=== PATIENT | female | born 2000 | race Caucasian/White ===

== ENCOUNTER → 2020-10-21 12:27 | Outpatient (CLI) | payer OTHER, MEDICAID, SELFPAY ==
--- NOTE | 2020-10-21 12:28 | DI.US.S_ITS ---
PROCEDURE: US OB LIMITED INDICATIONS: INTIAL DATING AND VIABILITY OUTSIDE/PRIOR DATING DATA: Last menstrual period (LMP): 06/29/2020. LMP-based estimated date of delivery (MODESTO): 04/05/2021. First dating scan (date and location): 10/21/2020. Estimated date of delivery (MODESTO) from first dating scan: 04/04/2021. TECHNIQUE: Real-time scanning was performed of the fetus, with image documentation and biometric measurements. Biophysical profile was also obtained. Endovaginal scanning: Not performed COMPARISON: None. FINDINGS: General: A single living intrauterine gestation is present. Presentation: too early. Placenta: Placental position is anterior , without previa. Amniotic fluid index: 13.4 cm, normal range is 5-24 cm. Largest pocket 4.0 cm. heart rate: 157 beats per minute. Maternal cervical canal: 3.1 cm long. Normal lower limit is 2.5 cm. biometrics: Biparietal diameter: 16 weeks 5 days Head circumference: 16 weeks 4 days Abdominal circumference: 16 weeks 4 days Femur length: 50 weeks 6 days Estimated gestational age from clinically datin weeks 2 days. Composite gestational age from present scan: 16 weeks 3 days Estimated weight and percentile: n.a. Measurement variability for biometric dating: +/- 7 days from 14 weeks to 15 weeks 6 days gestation, +/- 10 days from 16 weeks to 21 weeks 6 days gestation, +/- 2 weeks from 22 weeks to 27 weeks 6 days gestation, +/- 3 weeks for 28 weeks gestation or later. weight reference: 4500 g or EFW >90/95% is considered macrosomia or large for gestational age. EFW <10% is small for gestational age. EFW 5% or less is considered intra-uterine growth restriction. IMPRESSION: 1. A single living intrauterine gestation with an estimated gestational age of 16 weeks 3 days corresponding to ultrasound MODESTO 04/04/2021. Ultrasound dating concordant with clinical dating. Dictated by: Lili Merlos M.D. on 10/21/2020 at 17:43 Approved by: Lili Merlos M.D. on 10/21/2020 at 22:41
== END ==
PROVIDERS: Family Provider Pediatrics; PCP Pediatrics; Referring Provider Family Medicine; Visit Provider Family Medicine
DX: Z36.87 Encounter for antenatal screening for uncertain dates (principal); Z3A.16 16 weeks gestation of pregnancy
CPT/HCPCS: 76815

== ENCOUNTER → 2020-11-03 12:50 | Outpatient (CLI) | payer OTHER, MEDICAID, SELFPAY ==
[2020-11-03 13:50] LABS: Add Manual Diff / Slide Review NO; Basophils Absolute Auto 0 /uL (0-100); Basophils Percent Auto 0.4 % (0-2); Eosinophils Absolute Auto 100 /uL (0-450); Eosinophils Percent Auto 1.2 % (2-4); Hematocrit 40.3 % (36-46); Hemoglobin 13.7 g/dL (12.0-16.0); Lymphocytes Absolute Auto 1700 /uL (1100-4500); Lymphocytes Percent Auto 21.1 % (25-40); Mean Corpuscular Hemoglobin 31.6 PG (26-34); Mean Corpuscular Volume 92.8 fL (80-100); Monocytes Absolute Auto 400 /uL (0-900); Monocytes Percent Auto 4.8 % (3-14); Neutrophils Absolute Auto 5900 /uL (1500-7000); Neutrophils Percent Auto 72.5 % (50-75); Platelet Count 221 X10^3/uL (150-400); Red Blood Cell Count 4.34 X10^6/uL (4.0-5.2); Red Cell Distribution Width 13.9 % (11.6-14.8); White Blood Cell Count 8.1 X10^3/uL (4.5-11.0)
[2020-11-03 13:55] LABS: Appearance Urine UA SL CLOUDY; Bilirubin Urine UA NEGATIVE (NEGATIVE); Color Urine UA YELLOW; Glucose Urine UA NEGATIVE (Negative); Ketones Urine UA NEGATIVE (NEGATIVE); Leukocyte Esterase Urine UA NEGATIVE (NEGATIVE); Nitrite Urine UA NEGATIVE (Negative); Occult Blood Urine UA NEGATIVE (Negative); Protein Urine UA NEGATIVE (Negative); Specific Gravity Urine UA 1.015 (1.000-1.035); Urobilinogen Urine UA 0.2 E.U./dL (0.2)
[2020-11-03 20:10] LABS: HIV 1 & 2 Ab/Ag 4th Gen Combo NEGATIVE (NEGATIVE); Hep C Virus Ab w/Reflex Quant NEGATIVE s/c (NEGATIVE); Hepatitis B Surface Antigen NEGATIVE s/c (NEGATIVE); Rubella Antibody IgG 8.9 IU/mL (>15)
[2020-11-04 05:37] LABS: RPR Screen Non Reactive (Non Reactive)
[2020-11-04 13:16] LABS: Varicella IgG Antibody 169 index (Immune >165)
[2020-11-06 19:06] LABS: AFP, Serum 32.2 ng/mL (.); Calc Gestational Age Ultrasound (.); Estriol, Free 2.66 ng/mL (.); Inhibin A, Dimeric 108.46 pg/mL (.); Inhibin A, MoM 0.65 (.); Maternal Ethnicity Caucasian (.); Maternal Weight 173 lbs (.); Number of Fetuses No (.); OSBR Risk 1 IN 10000 (.); Results Report (.); Test Results *Screen Negative* (.); hCG, MoM 1.48 (.); hCG, Serum 32510 mIU/mL (.)
== END ==
PROVIDERS: Family Provider Pediatrics; Referring Provider Family Medicine; Visit Provider Family Medicine
DX: Z34.02 Encounter for supervision of normal first pregnancy, second trimester (principal); Z3A.18 18 weeks gestation of pregnancy
CPT/HCPCS: 36415; 80055; 81003; 82105; 82677; 84702; 86336; 86787; 86803; 86850; 86900; 86901; 87077; 87086; 87389

== ENCOUNTER → 2020-11-16 14:28 | Outpatient (CLI) | payer OTHER, MEDICAID, SELFPAY ==
--- NOTE | 2020-11-16 14:31 | DI.US.S_ITS ---
PROCEDURE: US OB >= 14 WEEKS FETUS INDICATIONS: ANATOMY OUTSIDE/PRIOR DATING DATA: Last menstrual period (LMP): June 29, 2020. LMP-based estimated date of delivery (MODESTO): April 05, 2021 . First dating scan (date and location): October 21, 2020 . Estimated date of delivery (MODESTO) from first dating scan: April 04, 2021 . TECHNIQUE: Real-time scanning was performed of the fetus, with image documentation and biometric measurements. Endovaginal scanning: Not performed COMPARISON: None. FINDINGS: General: A single living intrauterine gestation is present. Presentation: Transverse Placenta: Placental position is low anterior, without previa. There is a low lying placenta with the placental edge measuring approximately 1.7 cm from the internal cervical os. Amniotic fluid index: 13.6 cm, normal range is 5-24 cm. heart rate: 158 beats per minute. Maternal cervical canal: 4.6 cm long. Normal lower limit is 2.5 cm. biometrics: Biparietal diameter: 4.9 cm, correlating with 20 weeks and 5 days Head circumference: 18.3 cm, correlating with 20 weeks and 5 days Abdominal circumference: 15.8 cm, correlating with 20 weeks and 6 days Femur length: 3.0 cm, correlating with 19 weeks and 1 day Estimated gestational age from initial scan: 20 weeks and 1 day Composite gestational age from present scan: 20 weeks and 3 days Estimated weight and percentile: 339 [address] the fetus within the 49th percentile based off gestational age. Measurement variability for biometric dating: +/- 7 days from 14 weeks to 15 weeks 6 days gestation, +/- 10 days from 16 weeks to 21 weeks 6 days gestation, +/- 2 weeks from 22 weeks to 27 weeks 6 days gestation, +/- 3 weeks for 28 weeks gestation or later. weight reference: 4500 g or EFW >90/95% is considered macrosomia or large for gestational age. EFW <10% is small for gestational age. EFW 5% or less is considered intra-uterine growth restriction. Anatomic survey: Neuro: Ventricles are non-dilated at less than 10 mm. Cisterna magna is normal at 3-11 mm. Cerebellum is normal in size and morphology. Nuchal skin fold: Normal at less than 6 mm between 14-21 weeks gestational age. Face: Nose and lips are normal. facial profile not well imaged secondary to lie. Spine: No evidence for spina bifida. Heart: 4-chambered heart is present, with normal ventricular outflow tracts. Nonspecific 2.9 mm left ventricular echogenic focus seen. Diaphragm: Diaphragm is intact. Stomach: Left-sided stomach is present. Kidneys: No hydronephrosis. Normal is less than 5 mm in 2nd trimester, less than 7 mm in 3rd trimester. Cord: 3-vessel cord has orthotopic insertion. Bladder: Normal in size. Extremities: All 4 extremities identified. IMPRESSION: 1. Single living intrauterine gestation with estimated sonographic gestational age of approximately 20 weeks and 3 days. Estimated dated delivery is approximately April 04, 2021. 2. facial profile not well visualized. Follow-up recommended. 3. Nonspecific 3 mm left ventricular echogenic focus which is a nonspecific finding and can be seen in to 20% of normal fetuses. This may represent the normal papillary muscle or cordae tendineae. Recommend correlation with maternal risk factors and further evaluation as clinically appropriate. Attention can be made on subsequent imaging. Otherwise, unremarkable anatomic screening survey. 4. Low lying placenta with the edge of the placenta measuring approximately 1.7 cm from the internal cervical os. Follow-up can also be accomplished on subsequent imaging. Dictated by: Efe Eddy M.D. on 11/16/2020 at 17:54 Approved by: Efe Eddy M.D. on 11/16/2020 at 18:04
== END ==
PROVIDERS: Family Provider Pediatrics; PCP Family Medicine; Referring Provider Family Medicine; Visit Provider Family Medicine
DX: Z34.92 Encounter for supervision of normal pregnancy, unspecified, second trimester (principal); Z3A.20 20 weeks gestation of pregnancy
CPT/HCPCS: 76811

== ENCOUNTER → 2020-12-17 10:43 | Outpatient (CLI) | payer OTHER, MEDICAID, SELFPAY ==
--- NOTE | 2020-12-17 10:44 | DI.US.S_ITS ---
PROCEDURE: US OB FOLLOW UP INDICATIONS: RE-EVALUATE PROFILE, EIF, PLACENTA OUTSIDE/PRIOR DATING DATA: Last menstrual period (LMP): 06/29/20 . LMP-based estimated date of delivery (MODESTO): 04/05/21 . First dating scan (date and location): 10/21/20 . Estimated date of delivery (MODESTO) from first dating scan: 04/04/21 . TECHNIQUE: Real-time scanning was performed of the fetus, with image documentation and biometric measurements. Endovaginal scanning: Not performed COMPARISON: [facility], OB LIMITED, 10/21/2020, 11:40. [facility], OB >= 14 WEEKS FETUS, 11/16/2020, 14:38. FINDINGS: General: A single living intrauterine gestation is present. Presentation: Vertex. Placenta: Placental position is anterior , without previa. Amniotic fluid index: 17.5 cm, normal range is 5-24 cm. Largest pocket is 6.1 cm. heart rate: 152 beats per minute. Maternal cervical canal: 3.2 cm long. Normal lower limit is 2.5 cm. Other: Echogenic focus within the cardiac left ventricle is redemonstrated. facial profile is within normal limits. IMPRESSION: 1. Single living intrauterine . 2. Echogenic intracardiac focus is redemonstrated in the left ventricle. 3. facial profile appears within normal limits. 4. Anterior placenta is no longer low lying. Dictated by: Davina Rivera M.D. on 12/17/2020 at 13:20 Approved by: Davina Rivera M.D. on 12/17/2020 at 13:25
== END ==
PROVIDERS: Family Provider Pediatrics; PCP Family Medicine; Referring Provider Family Medicine; Visit Provider Family Medicine
DX: Z36.2 Encounter for other antenatal screening follow-up (principal)
CPT/HCPCS: 76816

== ENCOUNTER → 2021-01-12 15:01 | Outpatient (CLI) | payer OTHER, MEDICAID, SELFPAY | PROVIDERS: Family Provider Pediatrics; PCP Family Medicine; Referring Provider Family Medicine; Visit Provider Family Medicine | DX: Z34.90 Encounter for supervision of normal pregnancy, unspecified, unspecified trimester (principal) | CPT/HCPCS: 36415; 86850 ==

== ENCOUNTER → 2021-01-13 16:39 | Outpatient (CLI) | payer OTHER, MEDICAID, SELFPAY ==
[2021-01-13 18:18] LABS: Add Manual Diff / Slide Review NO; Basophils Absolute Auto 0 /uL (0-100); Basophils Percent Auto 0.4 % (0-2); Eosinophils Absolute Auto 100 /uL (0-450); Eosinophils Percent Auto 0.9 % (2-4); Hematocrit 36.5 % (36-46); Hemoglobin 12.4 g/dL (12.0-16.0); Lymphocytes Absolute Auto 1100 /uL (1100-4500); Lymphocytes Percent Auto 16.4 % (25-40); Mean Corpuscular HGB Conc 33.9 % (30-36); Mean Corpuscular Hemoglobin 31.2 PG (26-34); Monocytes Absolute Auto 500 /uL (0-900); Monocytes Percent Auto 7.3 % (3-14); Neutrophils Absolute Auto 5200 /uL (1500-7000); Platelet Count 204 X10^3/uL (150-400); Red Blood Cell Count 3.97 X10^6/uL (4.0-5.2); Red Cell Distribution Width 12.7 % (11.6-14.8); White Blood Cell Count 6.9 X10^3/uL (4.5-11.0)
[2021-01-13 18:20] LABS: GTT (PREG) 1 Hour PP 50gm Dose 96 mg/dL (76-139)
== END ==
PROVIDERS: Family Provider Pediatrics; PCP Family Medicine; Referring Provider Family Medicine; Visit Provider Family Medicine
DX: Z34.90 Encounter for supervision of normal pregnancy, unspecified, unspecified trimester (principal)
CPT/HCPCS: 36415; 82950; 85025

== ENCOUNTER → 2021-03-09 12:10 | Outpatient (CLI) | payer OTHER, MEDICAID, SELFPAY ==
[2021-03-10 09:00] LABS: Strep Grp B PCR NEG for Grp B Strep
== END ==
PROVIDERS: Family Provider Pediatrics; PCP Family Medicine; Visit Provider Family Medicine
DX: Z3A.36 36 weeks gestation of pregnancy (principal)
CPT/HCPCS: 87653

== ENCOUNTER 2021-04-05 20:01 | Outpatient (CLI) | payer OTHER, MEDICAID, SELFPAY ==
--- NOTE | 2021-04-05 20:57 | PM.OBTRLD ---
Visit Information Visit Information Date of evaluation: 04/05/21 Primary OB Provider: Amy Holloway Reason for Evaluation: Yes rule out labor Comments/Additional reasons for admission: 21yo at 40w0d here for labor check. She is not feeling any contractions, but wanted her cervix checked since it is her due date. No LOF or vaginal bleeding. She is feeling her baby move regularly. [facility] Medical History (Updated 04/06/21 @ 10:07 by Amy Holloway MD) Anxiety Concussion Cyst of left breast (~2019) Depression History of being hospitalized Hx of migraines Loss of teeth due to extraction Skull fracture Trauma Surgical History (Updated 11/01/20 @ 11:29 by Joellen Cleveland, RN) No history of previous surgery Family History (Updated 11/01/20 @ 10:50 by Joellen Cleveland, RN) Father Alcohol addiction Depression Anxiety PTSD (post-traumatic stress disorder) Mother Tendonitis Arthritis Grandfather Alcohol addiction Family estrangement Grandmother Arthritis Diabetes mellitus Grandfather Family estrangement Alcohol addiction Grandmother Family estrangement Alcohol addiction Brother Mental health problem Sister Mental health problem Family/Other Leukemia Cancer Family/Other Asthma Social History marital status: unmarried,living together number of children: 1 household members: significant other, family (Aunt and Uncle and their Baby), children (Baby) and other lives independently: No caregiver/support person: No pets and animals: Yes (Dogs ) education level: high school (No planning on finishing HS ) 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 Use of Marijuana to manage Depression and Anxiety ) Tobacco: How many years used: 4 Smokeless tobacco user: dissolvable tobacco quit status: quit date established (With Diagnosis) second hand exposure: Yes (FOB and Friends they hang out with smoke : cigarettes and Vape) alcohol intake: former (pre- : social use on occasion ) substance use type: does not use and marijuana (H/O regular use of Marijuana for Anxiety and Depression : aware and stopped using with . Encouraged mental health support. ) Evaluation Evaluation Baseline heart rate: 120 Variability: Moderate (11-25) monitor accelerations: Present Monitor Decelerations: Absent Contraction Frequency (minutes): 4 Category of Tracing: Reactive Cervical dilation (cm): 0 station: -4 Diagnosis, Plan/Disposition Final Diagnosis (1) 40 weeks gestation of : Status: Acute Plan/Disposition Plan: 21yo at 40w0d here for labor check. Not feeling contractions. Cervix not reachable on exam by nursing. NST reassuring. Stable for d/c home. OB Disposition: home
== END 2021-04-05 20:45 | disposition home or self-care (01) ==
LOC: OB 04-11 14:39
PROVIDERS: Family Provider Pediatrics; PCP Family Medicine; Referring Provider Family Medicine; Visit Provider Family Medicine
DX: O48.0 Post-term pregnancy (principal); Z3A.40 40 weeks gestation of pregnancy
CPT/HCPCS: 59025; G0378; G0379

== ENCOUNTER 2021-04-07 00:46 | Outpatient (CLI) | payer OTHER, MEDICAID, SELFPAY | END 2021-04-07 01:55 | disposition home or self-care (01) | LOC: OB 04-11 14:43 | PROVIDERS: Family Provider Pediatrics; PCP Family Medicine; Referring Provider Obstetrics & Gynecology; Visit Provider Obstetrics & Gynecology | DX: O47.1 False labor at or after 37 completed weeks of gestation (principal); O48.0 Post-term pregnancy; Z3A.40 40 weeks gestation of pregnancy | CPT/HCPCS: 59025; G0378; G0379 ==

== ENCOUNTER 2021-04-07 23:12 | Observation (INO) | payer OTHER, MEDICAID, SELFPAY ==
[2021-04-08 02:30] LABS: Appearance Urine UA CLEAR; Bilirubin Urine UA NEGATIVE (NEGATIVE); Color Urine UA YELLOW; Glucose Urine UA NEGATIVE (Negative); Ketones Urine UA 3+ (NEGATIVE); Leukocyte Esterase Urine UA NEGATIVE (NEGATIVE); Nitrite Urine UA NEGATIVE (Negative); Occult Blood Urine UA 1+ (Negative); Protein Urine UA 2+ (Negative); Urobilinogen Urine UA 0.2 E.U./dL (0.2)
[2021-04-08 02:32] LABS: Bacteria Urine Occasional (0-1); Mucus Urine 1+ (Negative); RBC Urine 5-10/HPF (0-5/HPF); Squamous Epithelial Cell Urine 1-5 /HPF (0-5/HPF); WBC Urine None Seen (0-5/HPF)
[2021-04-08 02:33] LABS: Culture Indicated Urine Cult Not Indicated
== END 2021-04-08 01:45 | disposition home or self-care (01) ==
LOC: LABOR 23:14
PROVIDERS: Admitting Provider Obstetrics & Gynecology; Family Provider Pediatrics; PCP Family Medicine; Referring Provider Obstetrics & Gynecology; Visit Provider Obstetrics & Gynecology
DX: O47.1 False labor at or after 37 completed weeks of gestation (principal); O48.0 Post-term pregnancy; Z3A.40 40 weeks gestation of pregnancy
CPT/HCPCS: 59025; 81001; 96372; G0378; G0379

== ENCOUNTER 2021-04-08 06:25 | Inpatient (IN) | payer OTHER, MEDICAID, SELFPAY ==
[2021-04-08] MEDS: LACTATED RINGERS 1,000 ML 100 ML IV ×2 (07:00→08:10)
[2021-04-08 07:42] LABS: Add Manual Diff / Slide Review NO; Basophils Absolute Auto 100 /uL (0-100); Basophils Percent Auto 0.7 % (0-2); Eosinophils Absolute Auto 0 /uL (0-450); Eosinophils Percent Auto 0.1 % (2-4); Hematocrit 36.7 % (36-46); Hemoglobin 11.9 g/dL (12.0-16.0); Lymphocytes Absolute Auto 1100 /uL (1100-4500); Lymphocytes Percent Auto 9.6 % (25-40); Mean Corpuscular HGB Conc 32.4 % (30-36); Mean Corpuscular Hemoglobin 25.4 PG (26-34); Mean Corpuscular Volume 78.6 fL (80-100); Monocytes Absolute Auto 500 /uL (0-900); Monocytes Percent Auto 4.1 % (3-14); Neutrophils Absolute Auto 10100 /uL (1500-7000); Neutrophils Percent Auto 85.5 % (50-75); Platelet Count 249 X10^3/uL (150-400); Red Blood Cell Count 4.67 X10^6/uL (4.0-5.2); Red Cell Distribution Width 15.5 % (11.6-14.8); White Blood Cell Count 11.8 X10^3/uL (4.5-11.0)
--- NOTE | 2021-04-08 07:42 | P.HPOB_ITS ---
OB HPI Date/Time Date of admission: 04/08/21 Date Patient Seen: 04/08/21 Time Patient Seen: 07:43 History of Present Condition Chief complaint: OBS MODESTO Calculator Estimated Delivery Date Method Current WG Current Estimate 04/05/21 Manual 40w 3d Final MODESTO Other Estimates 04/05/21 LMP (Certain) 40w 3d 04/04/21 Ultrasound #1 40w 4d Estimated Gestational Age (weeks): 40w3d : 1 Para: 0 Narrative: 21yo at 40w3d here with regular painful contractions. Pt was in L&D earlier in the evening without significant cervical change despite painful cont ractions. She received Morphine and Phenergan and discharged home. She then returned with increasingly frequent contractions getting more painful. She denies any vaginal bleeding. She did have LOF that was clear at 5:30am. She is feeling her baby move regularly. Her was complicated by EIF seen on anatomy scan, with negative genetic screening since then. care: good care, initiated at week # (18) and pounds weight gain (23) Dating criteria OB: LMP confirmed by 2nd trimester US Ultrasounds: abnormal US findings (EIF) Obstetrical complications: other (EIF on anatomy scan with negative cfDNA) Medical complications OB: none Preadmission Labs Last OB Lab Results: Blood Type O Negative 11/03/20 12:59 11/03/20 Antibody Screen Negative 01/12/21 15:21 01/12/21 Hematocrit 36.7 % (36-46) 04/08/21 06:35 04/08/21 Hemoglobin 11.9 g/dL (12.0-16.0) L 04/08/21 06:35 04/08/21 Hepatitis B Surface Antigen Negative s/c (NEGATIVE) 11/03/20 12:59 11/03/20 Hepatitis C Antibody Negative s/c (NEGATIVE) 11/03/20 12:59 11/03/20 Rubella Antibody 8.9 IU/mL (>15) L 11/03/20 12:59 11/03/20 Varicella-Zoster IgG Antibody 169 index (Immune >165) 11/03/20 12:59 11/03/20 Glucose 1 Hour 96 mg/dL (76-139) 01/13/21 16:57 01/13/21 Group B Streptococcus (PCR) Neg for grp b strep 03/09/21 12:10 03/09/21 -: Urine: negative Genetic Screens: Quad screen: Normal and Cell-free DNA: Normal External Labs -: Urine: negative Evaluation Evaluation Baseline heart rate: 140 Variability: Moderate (11-25) monitor accelerations: Present Monitor Decelerations: Absent Contraction Frequency (minutes): 3 Status: Category l Dilation (cm): 10 Effacement (%): 100 station: 0 PFSH Medical History (Updated 04/06/21 @ 10:07 by Amy Holloway MD) Anxiety Concussion Cyst of left breast (~2018) Depression History of being hospitalized Hx of migraines Loss of teeth due to extraction Skull fracture Trauma Surgical History (Updated 11/01/20 @ 11:29 by Joellen Cleveland RN) No history of previous surgery Family History (Updated 11/01/20 @ 10:50 by Joellen Cleveland RN) Father Alcohol addiction Depression Anxiety PTSD (post-traumatic stress disorder) Mother Tendonitis Arthritis Grandfather Alcohol addiction Family estrangement Grandmother Arthritis Diabetes mellitus Grandfather Family estrangement Alcohol addiction Grandmother Family estrangement Alcohol addiction Brother Mental health problem Sister Mental health problem Family/Other Leukemia Cancer Family/Other Asthma Social History marital status: unmarried,living together number of children: 1 household members: significant other, family (Aunt and Uncle and their Baby), children (Baby) and other lives independently: No caregiver/support person: No pets and animals: Yes (Dogs ) education level: high school (No planning on finishing HS ) 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 Use of Marijuana to manage Depression and Anxiety ) Tobacco: How many years used: 4 Smokeless tobacco user: dissolvable tobacco quit status: quit date established (With Diagnosis) second hand exposure: Yes (FOB and Friends they hang out with smoke : cigarettes and Vape) alcohol intake: former (pre- : social use on occasion ) substance use type: does not use and marijuana (H/O regular use of Marijuana for Anxiety and Depression : aware and stopped using with . Encouraged mental health support. ) Meds Home Medications and Allergies Home Medications Medication Instructions Recorded Confirmed Type doxylamine succinate 25 mg tablet 25 mg PO BEDTIME PRN 11/01/20 11/01/20 History (Unisom (doxylamine)) prenat.vits,tico,[id number] 1 tab PO DAILY 11/01/20 11/01/20 History Allergies Allergy/AdvReac Type Severity Reaction Status Date / Time amoxicillin [From AUGMENTIN] Allergy Intermediate HIVES Unverified 11/01/20 10:07 clavulanic acid Allergy Intermediate Hives Verified 11/01/20 10:07 [CLAVULANIC ACID] Objective Labs Result Diagrams: 04/08/21 06:35 Assessment and Plan Assessment and Plan Assessment and Plan narrative: Pt is a 21yo at 40w3d here in active labor. No complications with pregn sintia. Rh negative, GBS negative. - Expectant management, anticipate - FHT reassuring - GBS negative, no prophylaxis indicated - Collect cord blood for Rh status after delivery - Epidural in place for pain control
--- NOTE | 2021-04-08 07:49 | PM.AN.REGBLK ---
Regional Block Pre-procedure Procedure: Continuous Lumbar Epidural for L&D Attending OB provider: Amy Holloway PMH/ROS narrative: active labor Hx: No personal or family history of anesthesia problems. PSH/Anesthesia history narrative: none Exam narrative: RRR CTAB ASA Class: II Medications: Current Medications Generic Name Dose Route Start Last Admin Trade Name Freq PRN Reason Stop Dose Admin Calcium Carbonate 1,000 mg 04/08/21 07:30 Calcium Carbonate 500 Mg Tab PO Q2HR PRN Dyspepsia Carboprost Tromethamine 250 mcg 04/08/21 07:30 Carboprost 250 Mcg/Ml Ampul IM Q90M PRN Bleeding Fentanyl 50 mcg 04/08/21 07:30 Fentanyl 100 Mcg/2 Ml Inj IV Q1H PRN Pain, Moderate (4-6) Oxytocin/Lactated Ringer's 30 unit in 500 mls @ 200 mls/hr 04/08/21 07:30 Oxytocin Premix IV CONT PRN Bleeding Protocol Oxytocin/Lactated Ringer's 30 unit in 500 mls @ 3 mls/hr 04/08/21 07:30 Oxytocin Premix IV TITRATE NADEEM Protocol 3 MILLIUNIT/MIN Tranexamic Acid 1,000 mg/ 100 mls @ 200 mls/hr 04/08/21 07:30 Sodium Chloride IV NOW PRN Bleeding Lactated Ringer's 1,000 mls @ 100 mls/hr 04/08/21 07:30 Lactated Ringers IV CONT NADEEM Methylergonovine Maleate 0.2 mg 04/08/21 07:30 Methylergonovine 0.2 Mg Tablet PO Q6HR PRN Heavy Bleeding Methylergonovine Maleate 0.2 mg 04/08/21 07:30 Methylergonovine 0.2 Mg/Ml Vial IM NOW PRN Bleeding Misoprostol 1,000 mcg 04/08/21 07:30 Misoprostol 200 Mcg Tablet [place] NOW PRN Bleeding Misoprostol 800 mcg 04/08/21 07:30 Misoprostol 200 Mcg Tablet [place] NOW PRN Bleeding Misoprostol 400 mcg 04/08/21 07:30 Misoprostol 200 Mcg Tablet SL NOW PRN Bleeding Naloxone HCl 0.2 mg 04/08/21 07:30 Naloxone 0.4 Mg/Ml Vial IV Q2MIN PRN Opiate Reversal Ondansetron HCl 4 mg 04/08/21 07:30 Ondansetron 4 Mg/2 Ml Inj IV Q4HR PRN Nausea And Vomiting Oxytocin 10 unit 04/08/21 07:30 Oxytocin 10 Unit/Ml Vial IM NOW PRN Bleeding Allergies: Allergies Allergy/AdvReac Type Severity Reaction Status Date / Time amoxicillin [From AUGMENTIN] Allergy Intermediate HIVES Unverified 11/01/20 10:07 clavulanic acid Allergy Intermediate Hives Verified 11/01/20 10:07 [CLAVULANIC ACID] Procedure Insertion date: 04/08/21 Insertion time: 07:25 Prep/Local: betadine x3 (chloroprep) and 1% lidocaine Interspace: L3-4 Patient position: sitting Needle: 18 gauge Blackford Analysistead (with 27G pencil point needle-through needle for IT dose) Loss of resistance with: saline (with air bubble) LUDY at (cm): 7 Catheter placed at SKIN (cm): 12 Catheter in SPACE (cm): 5 Insertion: Yes CSF, No Blood, No Paresthesia with insertion, No Paresthesia with injection and No Test dose reaction Initial Medications TEST DOSE time: 07:25 TEST DOSE: 1.5% lidocaine with epinephrine 1:200k (mL): 5 (3mL initial test dose, 2mL as part of first bolus) BOLUS DOSE time: 07:27 BOLUS DOSE (mL): 2 BOLUS DOSE med: other (10mcg fentanyl intrathecally, 90mcg fentanyl via epidural catheter) Infusion INFUSION: 0.0625% bupivacaine and with fentanyl 2 mcg/mL Initial rate (mL/hr): 12 (with bolus of 5mL Q15min lockout) Post-procedure Anesthesia time START: 07:12 Anesthesia time END: 10:18 Post-procedure Anesthesia Assessment: No Anesthesia complications
[2021-04-08 07:56] LABS: COVID19 -Nasal RAPID Negative (Negative)
[2021-04-08] MEDS: FENT 2MCG/ML BUPIV 0.125% EPI 200 MCG/100 ML PLAST..BAG 12 MCG EPIDURAL (08:09)
[2021-04-08 08:11] VITALS: BP 115/64
--- NOTE | 2021-04-08 11:03 | P.PCNOB_ITS ---
Labor & Delivery Delivery date: 04/08/21 Intrapartal Events: None Cervical ripening method: none Induction method: none Delivery monitor: external FHT Route of delivery: Episiotomy description: None L&D Laceration Description: Perineal - 2nd Degree Delivery repair: vicryl Estimated blood loss (mL): 100 Anesthesia Type: Epidural Complications: None Narrative: PROCEDURE: at 40w3d presented in active labor and was admitted to Labor and Delivery. She had SROM with clear fluid. The patient progressed through the 1st stage over 17 hours. Pain was controlled with an epidural. The patient progressed through the 2nd stage over 2.5 hours and delivered a viable female infant with APGARs 7/8 at 10:18 via without complications. The baby was in direct OP presentation at delivery. The cord was clamped and cut after it stopped pulsating. The perineum and vagina were inspected with 2nd degree perineal laceration repaired with 2-O Vicryl. PREPROCEDURE DIAGNOSIS: Intrauterine at 40w3d GBS negative RH negative POSTPROCEDURE DIAGNOSIS: Intrauterine at 40w3d, delivered Same as preprocedure Spontaneous vaginal delivery Direct OP presentation [place] 1: gender: Female Presentation: vertex Position: Right Occiput Posterior (direct OP presentation) Placenta delivery description: Spontaneous Cord Vessel Description: 3 Vessels score (5 min): 7 score (10 min): 8 weight: 8 lb 11.967 oz Plan for aftercare: Routine care
[2021-04-08 13:11] VITALS: TEMP 37.1
[2021-04-08] MEDS: IBUPROFEN 600 MG TABLET PO ×2 (13:11→21:03)
[2021-04-08 13:12] VITALS: TEMP 37.1
[2021-04-08] MEDS: ACETAMINOPHEN 325 MG TABLET 650 MG PO ×2 (13:12→21:03)
[2021-04-09] MEDS: IBUPROFEN 600 MG TABLET PO (08:48)
[2021-04-09] MEDS: ACETAMINOPHEN 325 MG TABLET 650 MG PO (08:48)
[2021-04-09] MEDS: PRENATAL VIT,CALC/IRON/FOLIC 1 TABLET 1 TAB PO (08:48)
[2021-04-09] MEDS: DOCUSATE 100 MG CAPSULE PO (08:48)
--- NOTE | 2021-04-09 10:24 | PM.OBDS.1 ---
Discharge Providers Provider Date of admission: 04/08/21 06:25 Discharge Date: 04/09/21 Primary care physician: Amy Holloway MD Consults: 04/09/21 11:02 Consult to Belt Conveyor Drier Routine Comment: Discharge provider: Amy Holloway MD Summary Hospital Course Date Patient Seen: 04/09/21 Time Patient Seen: 10:24 Diagnoses: Intrauterine at 40w3d GBS negative RH negative Spontaneous vaginal delivery Hospital Course: The patient presented in active labor. She received an epidural for pain control. She progressed to complete and had spontaneous vaginal delivery of a viable baby girl on 04/08/2021. A 2nd degree perineal laceration was then repaired. There were no complications. , there were no complications. At the time of discharge she was voiding, ambulating, and passing flatus without difficulty. She received a RhoGAM injection for Rh negative status with Rh positive baby. Her pain was adequately controlled. She is breast-feeding with good last. Her lochia was decreasing appropriately. She will follow up in clinic in 6 weeks for check. Peripartum Data Delivery Method: Natural Vaginal Laceration Description: Perineal - 2nd Degree Episiotomy description: None Procedures: Spontaneous vaginal delivery complications: none [place] 1: Gender: Female Disposition of : home Discharge Diagnosis (1) Spontaneous vaginal delivery: Status: Acute Status at Discharge Cognitive/behavioral status at discharge: oriented Functional status at discharge: independent ambulation Overall status at discharge: patient is progressing back to baseline Time Spent with Patient Time attestation: Total time spent providing and/or coordinating discharge services: Objective Labs Result Diagrams: 04/08/21 06:35 Exam Narrative Exam Narrative: Gen: NAD, sitting comfortably in bed, appears well CV: RRR, no murmurs Resp: clear to auscultation bilaterally Abd: soft, appropriately tender, fundus firm and below the umbilicus, nondistended Ext: no edema Discharge Plan Discharge Plan Patient Disposition: Home Discharge orders & Medications Prescriptions: New acetaminophen 325 mg Tablet 650 mg PO Q6HR PRN (Reason: Pain, Mild (1-3)) Qty: 30 0RF docusate sodium 100 mg Capsule 100 mg PO DAILY Qty: 30 0RF ibuprofen 600 mg Tablet 600 mg PO Q6HR PRN (Reason: Pain, Mild (1-3)) Qty: 30 0RF Continued prenat.vits,tico,[id number] Tablet 1 tab PO DAILY 0RF Discontinued Unisom (doxylamine) 25 mg tablet 25 mg PO BEDTIME PRN (Reason: Stomach Upset) 0RF Follow up/Referrals: Amy Holloway MD [Primary Care Provider] - 6 Weeks Diet/Activity/Treatments Diet: Feed on demand Skin/Wound/Dressing Care Report to your healthcare provider any signs of infection, such as:: chills, fever, increased pain and unusual drainage Visit Report/Discharge Packet Instructions: DI for Labor and Delivery, Vaginal Visit Report Forms: Patient Portal/API, Stroke Signs & Symptoms Discharge Data Primary Care Provider: Amy Holloway
[2021-04-09 10:29] VITALS: BP 121/75; PULSE 60; RESP 16; TEMP 36.6
[2021-04-09] MEDS: MEASLES,MUMPS,RUBELLA VACC/PF 0.5 ML VIAL SUBCUT (10:57)
[2021-04-09] MEDS: RHO(D) IMMUNE GLOBULIN 1,500 UNIT SYRINGE 1500 UNIT IM (10:57)
== END 2021-04-09 11:50 | disposition home or self-care (01) | DRG 560 ==
PROVIDERS: Admitting Provider Obstetrics & Gynecology; Family Provider Pediatrics; PCP Family Medicine; Referring Provider Obstetrics & Gynecology; Visit Provider Obstetrics & Gynecology
DX: O70.1 Second degree perineal laceration during delivery (principal); Z3A.40 40 weeks gestation of pregnancy; Z37.0 Single live birth; O47.1 False labor at or after 37 completed weeks of gestation; O48.0 Post-term pregnancy
CPT/HCPCS: 01967; 36415; 59025; 59050; 59409; 81001; 85025; 85461; 86850; 86900; 86901; 87635; 96372; C9803; G0378; G0379; J2790

== ENCOUNTER → 2021-12-28 10:27 | Outpatient (CLI) | payer OTHER, MEDICAID, SELFPAY ==
--- NOTE | 2021-12-28 10:28 | DI.US.S_ITS ---
PROCEDURE: US OB <= 14 WEEKS FETUS INDICATIONS: DATING OUTSIDE/PRIOR DATING DATA: Last menstrual period (LMP): Not available. LMP-based estimated date of delivery (MODESTO): Not available. First dating scan (date and location): 12/28/2021. Estimated date of delivery (MODESTO) from first dating scan: 07/20/2022. TECHNIQUE: Real-time scanning was performed of the fetus and maternal pelvic organs, with image documentation. Endovaginal scanning was also performed to better visualize the fetus and maternal ovaries. COMPARISON: None. FINDINGS: There is a single living IUP. Embryo: Measuring 4.0 cm corresponding to 10 weeks 6 days in gestational age. Prominent gestational sac measuring 7.5 x 4.6 x 5.6 cm. There is nonfusion of chorionic and amniotic membranes with complex fluid and debris debris, suggesting blood product. It measures measuring 5.5 x 5.0 x 3.0 cm. The yolk sac measuring 6.1 mm. Heart rate: 180 BP and. Maternal organs: Left ovary is obscured by overlying bowel gas. Right ovary is grossly normal. IMPRESSION: 1. A single living intrauterine gestation with an estimated gestational age of 10 weeks 6 days corresponding to ultrasound MODESTO 07/20/2022. 2. There is complex fluid with debris between amniotic and chorionic membranes measuring 5.5 x 5.0 x 3.0 cm, compatible with hemorrhagic products. Recommend close clinical and imaging follow-up as clinically indicated. We strive to produce accurate, complete, and clear reports of imaging services. To assist us in improving patient care, this report was composed using standard report templates and voice recognition software. Therefore, it may contain abnormal punctuation, insertions and/or omissions. Occasional wrong-word or sound-alike substitutions may occur. Though we review the report and make efforts to correct it, we do recommend that the report be read carefully in proper context to recognize any text inaccuracies. Dictated by: Lili Merlos M.D. on 12/28/2021 at 16:26 Approved by: Lili Merlos M.D. on 12/29/2021 at 12:31
== END ==
PROVIDERS: Family Provider Pediatrics; PCP Family Medicine; Referring Provider Family Medicine; Visit Provider Family Medicine
DX: Z36.87 Encounter for antenatal screening for uncertain dates (principal); Z3A.10 10 weeks gestation of pregnancy
CPT/HCPCS: 76801; 76817

== ENCOUNTER → 2022-01-04 16:26 | Outpatient (CLI) | payer OTHER, MEDICAID, SELFPAY ==
[2022-01-04 21:20] LABS: Appearance Urine UA CLEAR; Bilirubin Urine UA NEGATIVE (NEGATIVE); Color Urine UA YELLOW; Glucose Urine UA NEGATIVE (Negative); Ketones Urine UA NEGATIVE (NEGATIVE); Leukocyte Esterase Urine UA TRACE (NEGATIVE); Nitrite Urine UA NEGATIVE (Negative); Occult Blood Urine UA NEGATIVE (Negative); Protein Urine UA NEGATIVE (Negative); Urobilinogen Urine UA 0.2 E.U./dL (0.2)
[2022-01-04 21:21] LABS: pH Urine UA 7.5 (4.5-8.0)
[2022-01-04 21:36] LABS: Bacteria Urine Few (2-10); RBC Urine None Seen (0-5/HPF); Squamous Epithelial Cell Urine 1-5 /HPF (0-5/HPF); WBC Urine 1-5/HPF (0-5/HPF)
== END ==
PROVIDERS: Family Provider Pediatrics; PCP Family Medicine; Visit Provider Family Medicine
DX: Z34.80 Encounter for supervision of other normal pregnancy, unspecified trimester (principal)
CPT/HCPCS: 81003; 81015; 87086

== ENCOUNTER → 2022-01-04 16:50 | Outpatient (CLI) | payer OTHER, MEDICAID, SELFPAY ==
[2022-01-04 18:08] LABS: Add Manual Diff / Slide Review NO; Basophils Absolute Auto 0 /uL (0-100); Basophils Percent Auto 0.5 % (0-2); Eosinophils Absolute Auto 100 /uL (0-450); Eosinophils Percent Auto 1.6 % (2-4); Hematocrit 39.9 % (36-46); Hemoglobin 14.1 g/dL (12.0-16.0); Lymphocytes Absolute Auto 1700 /uL (1100-4500); Lymphocytes Percent Auto 21.6 % (25-40); Mean Corpuscular HGB Conc 35.2 % (30-36); Mean Corpuscular Hemoglobin 31.6 PG (26-34); Mean Corpuscular Volume 89.6 fL (80-100); Monocytes Absolute Auto 400 /uL (0-900); Monocytes Percent Auto 4.5 % (3-14); Neutrophils Absolute Auto 5700 /uL (1500-7000); Neutrophils Percent Auto 71.8 % (50-75); Platelet Count 233 X10^3/uL (150-400); Red Blood Cell Count 4.46 X10^6/uL (4.0-5.2); Red Cell Distribution Width 13.8 % (11.6-14.8); White Blood Cell Count 7.9 X10^3/uL (4.5-11.0)
[2022-01-04 18:30] LABS: HCG Quantitative /Beta subunit 86211 mIU/mL
[2022-01-05 16:16] LABS: Hepatitis B Surface Antigen NEGATIVE s/c (NEGATIVE); Rubella Antibody IgG 56.7 IU/mL (>15)
[2022-01-05 16:31] LABS: HIV 1 & 2 Ab/Ag 4th Gen Combo NEGATIVE (NEGATIVE); Hep C Virus Ab w/Reflex Quant NEGATIVE s/c (NEGATIVE)
[2022-01-06 07:15] LABS: RPR Screen Non Reactive (Non Reactive)
[2022-01-06 12:37] LABS: Varicella IgG Antibody 157 index (Immune >165)
== END ==
PROVIDERS: Family Provider Pediatrics; PCP Family Medicine; Referring Provider Family Medicine; Visit Provider Family Medicine
DX: Z34.80 Encounter for supervision of other normal pregnancy, unspecified trimester (principal)
CPT/HCPCS: 36415; 80055; 81003; 81015; 84702; 86787; 86803; 86850; 86900; 86901; 87086; 87389

== ENCOUNTER → 2022-01-10 10:37 | Outpatient (CLI) | payer OTHER, MEDICAID, SELFPAY ==
--- NOTE | 2022-01-10 10:38 | DI.US.S_ITS ---
PROCEDURE: US OB LIMITED INDICATIONS: FOLLOW-UP HEMORRHAGE OUTSIDE/PRIOR DATING DATA: Last menstrual period (LMP): uncertain. First dating scan (date and location): 12/28/2021. Estimated date of delivery (MODESTO) from first dating scan: 07/20/2022. TECHNIQUE: Real-time scanning was performed of the fetus, with image documentation. Endovaginal scanning: Not performed COMPARISON: [facility], OB LIMITED, 10/21/2020, 11:40. [facility], OB <= 14 WEEKS FETUS, 12/28/2021, 10:52. FINDINGS: A single living intrauterine gestation is present. Presentation: Variable. Placenta: Placental position is anterior. heart rate: 163 beats per minute. Estimated gestational age from initial scan: 12 weeks 5 days. Interval decrease in size of previously demonstrated perigestational hemorrhage, current approximate dimensions 1.3 x 5.3 x 4.8 centimeters, previously 5.5 x 5.0 x 3.0 centimeters. IMPRESSION: 1. Single living intrauterine . 2. Decrease in size of the previously demonstrated perigestational hemorrhage/collection. Dictated by: Waylon Meredith M.D. on 01/10/2022 at 14:17 Approved by: Waylon Meredith M.D. on 01/10/2022 at 14:23
== END ==
PROVIDERS: Family Provider Pediatrics; PCP Family Medicine; Referring Provider Family Medicine; Visit Provider Family Medicine
DX: O46.8X1 Other antepartum hemorrhage, first trimester (principal); Z3A.12 12 weeks gestation of pregnancy
CPT/HCPCS: 76815

== ENCOUNTER → 2022-01-25 15:22 | Outpatient (CLI) | payer OTHER, MEDICAID, SELFPAY ==
--- NOTE | 2022-01-25 15:24 | DI.US.S_ITS ---
PROCEDURE: US OB FOLLOW UP INDICATIONS: perigestational hemmorage f/u OUTSIDE/PRIOR DATING DATA: Last menstrual period (LMP): Not available. LMP-based estimated date of delivery (MODESTO): Not available. First dating scan (date and location): 12/28/2021. Estimated date of delivery (MODESTO) from first dating scan: 07/20/2022. The calculations are made using the working MODESTO of 07/20/2022. TECHNIQUE: Real-time scanning was performed of the fetus, with image documentation and biometric measurements. Endovaginal scanning: Not performed COMPARISON: [facility], OB LIMITED, 01/10/2022, 10:44. [facility] OB <= 14 WEEKS FETUS, 12/28/2021, 10:52. [facility] OB FOLLOW UP, 12/17/2020, 10:53. FINDINGS: General: A single living intrauterine gestation is present. Presentation: Breech. Placenta: Placental position is anterior , without previa. Amniotic fluid index: Too early. heart rate: 168 beats per minute. Maternal cervical canal: Not well seen biometrics: Not performed. Based on the initial ultrasound, the estimated gestational age is 14 weeks 6 days. Other: Perigestational bleed is no longer visualized. IMPRESSION: 1. A single living intrauterine gestation is redemonstrated with the estimated gestational age 14 weeks 6 days based on the initial dating ultrasound 2. Resolution of perigestational bleed. We strive to produce accurate, complete, and clear reports of imaging services. To assist us in improving patient care, this report was composed using standard report templates and voice recognition software. Therefore, it may contain abnormal punctuation, insertions and/or omissions. Occasional wrong-word or sound-alike substitutions may occur. Though we review the report and make efforts to correct it, we do recommend that the report be read carefully in proper context to recognize any text inaccuracies. Dictated by: Lili Merlos M.D. on 01/25/2022 at 17:58 Approved by: Lili Merlos M.D. on 01/25/2022 at 18:04
== END ==
PROVIDERS: Family Provider Pediatrics; PCP Family Medicine; Referring Provider Family Medicine; Visit Provider Family Medicine
DX: Z36.2 Encounter for other antenatal screening follow-up (principal); Z3A.14 14 weeks gestation of pregnancy
CPT/HCPCS: 76816

== ENCOUNTER → 2022-02-04 09:44 | Outpatient (CLI) | payer OTHER, MEDICAID, SELFPAY ==
[2022-02-08 20:50] LABS: Calc Gestational Age EDD (.); Estriol, Free 1.26 ng/mL (.); Inhibin A, Dimeric 82.29 pg/mL (.); Inhibin A, MoM 0.51 (.); Maternal Ethnicity Caucasian (.); Maternal Weight 146 lbs (.); Number of Fetuses No (.); OSBR Risk 1 IN 10000 (.); Results Report (.); Test Results *Screen Negative* (.); hCG, MoM 0.61 (.); hCG, Serum 25727 mIU/mL (.)
== END ==
PROVIDERS: Family Provider Pediatrics; PCP Family Medicine; Referring Provider Family Medicine; Visit Provider Family Medicine
DX: Z13.79 Encounter for other screening for genetic and chromosomal anomalies (principal); Z3A.16 16 weeks gestation of pregnancy
CPT/HCPCS: 36415; 82105; 82677; 84702; 86336

== ENCOUNTER → 2022-03-01 07:35 | Outpatient (CLI) | payer OTHER, MEDICAID, SELFPAY ==
--- NOTE | 2022-03-01 07:37 | DI.US.S_ITS ---
PROCEDURE: US OB >= 14 WEEKS FETUS INDICATIONS: ANATOMY OUTSIDE/PRIOR DATING DATA: Last menstrual period (LMP): Unknown. First dating scan (date and location): 12/28/2021. Estimated date of delivery (MODESTO) from first dating scan: 07/20/2022. TECHNIQUE: Real-time scanning was performed of the fetus, with image documentation and biometric measurements. Endovaginal scanning: Not performed COMPARISON: [facility], OB FOLLOW UP, 01/25/2022, 15:37. FINDINGS: General: A single living intrauterine gestation is present. Presentation: Breech. Placenta: Placental position is anterior , without previa. Amniotic fluid index: 13.8 cm, normal range is 5-24 cm. Single deepest vertical pocket is 5.0 cm. heart rate: 153 beats per minute. Maternal cervical canal: 2.9 cm long. Normal lower limit is 2.5 cm. biometrics: Biparietal diameter: 4.5 cm, 19 weeks 5 days Head circumference: 16.9 cm, 19 weeks 4 days Abdominal circumference: 15.4 cm, 20 weeks 4 days Femur length: 3.0 cm, 19 weeks 2 days estimated gestational age: 19 weeks 6 days Composite gestational age from present scan: 19 weeks 6 days Estimated weight and percentile: 320 g, 48th percentile Anatomic survey: Neuro: Ventricles are non-dilated at less than 10 mm. Cisterna magna is normal at 3-11 mm. Cerebellum is normal in size and morphology. Nuchal skin fold: Normal at less than 6 mm between 14-21 weeks gestational age. Face: Nose and lips, facial profile are normal. Spine: Cervical spine unremarkable. Thoracic, lumbar, sacral spine not well visualized. Heart: 4-chambered heart is present, with normal ventricular outflow tracts. Diaphragm: Diaphragm is intact. Stomach: Left-sided stomach is present. Kidneys: No hydronephrosis. Normal is less than 5 mm in 2nd trimester, less than 7 mm in 3rd trimester. Cord: Cord insertion is unremarkable. 3 vessel cord not well seen. Bladder: Normal in size. Extremities: All 4 extremities identified. IMPRESSION: 1. Single living intrauterine . 2. Thoracic, lumbar, and sacral spine not well visualized due to lie. Three vessel umbilical cord also not well visualized. Follow-up/repeat evaluation can be obtained as indicated. 3. Otherwise, the visualized anatomy is within normal limits. We strive to produce accurate, complete, and clear reports of imaging services. To assist us in improving patient care, this report was composed using standard report templates and voice recognition software. Therefore, it may contain abnormal punctuation, insertions and/or omissions. Occasional wrong-word or sound-alike substitutions may occur. Though we review the report and make efforts to correct it, we do recommend that the report be read carefully in proper context to recognize any text inaccuracies. Dictated by: Waylon Meredith M.D. on 03/01/2022 at 11:38 Approved by: Waylon Meredith M.D. on 03/01/2022 at 11:51
== END ==
PROVIDERS: Family Provider Pediatrics; PCP Family Medicine; Referring Provider Family Medicine; Visit Provider Family Medicine
DX: Z34.92 Encounter for supervision of normal pregnancy, unspecified, second trimester (principal); Z3A.19 19 weeks gestation of pregnancy
CPT/HCPCS: 76811

== ENCOUNTER → 2022-03-07 11:25 | Outpatient (CLI) | payer OTHER, MEDICAID, SELFPAY ==
[2022-03-07 14:05] LABS: COVID-19 CEPHEID 4-PLEX PCR Negative (Negative); Influenza A - CEPHEID Flu A POSITIVE (NEGATIVE); Influenza B - CEPHEID Flu B NEGATIVE (NEGATIVE)
== END ==
PROVIDERS: Family Provider Pediatrics; PCP Family Medicine; Visit Provider Family Medicine
DX: H93.8X3 Other specified disorders of ear, bilateral (principal); R05.9 Cough, unspecified; R09.81 Nasal congestion; R51.9 Headache, unspecified; R53.83 Other fatigue
CPT/HCPCS: 0240U

== ENCOUNTER → 2022-04-04 15:41 | Outpatient (CLI) | payer OTHER, MEDICAID, SELFPAY ==
--- NOTE | 2022-04-04 15:43 | DI.US.S_ITS ---
PROCEDURE: US OB FOLLOW UP INDICATIONS: RE-EVALUATE SPINE, 3V OUTSIDE/PRIOR DATING DATA: Last menstrual period (LMP): Unknown LMP-based estimated date of delivery (MODESTO): Unknown First dating scan (date and location): 12/28/2021 Estimated date of delivery (MODESTO) from first dating scan: 07/20/2022 The calculations are made using the study generated MODESTO of 07/20/2022. TECHNIQUE: Real-time scanning was performed of the fetus, with image documentation. Endovaginal scanning: Not indicated COMPARISON: [facility], , OB FOLLOW UP, 01/25/2022, 15:37 FINDINGS: A single living intrauterine gestation is present. Presentation: Breech Placenta: Placental position is anterior, without previa. Amniotic fluid index: 14.2 cm, normal range is 5-24 cm. Single deepest vertical pocket is 5.4 cm. heart rate: 147 beats per minute. Maternal cervical canal: 3.5 cm long. Normal lower limit is 2.5 cm. Estimated gestational age from initial scan: 24 weeks, 5 days. spine is well seen on the current study and is within normal limits. 3 vessel umbilical cord is also seen and is within normal limits. IMPRESSION: 1. Single live intrauterine gestation with fetus in breech presentation. heart rate is 147 beats per minute. Normal amount of amniotic fluid. 2. spine and three-vessel cord are visualized and are within normal limits. Dictated by: Hi Monsalve M.D. on 04/04/2022 at 17:18 Approved by: Hi Monsalve M.D. on 04/04/2022 at 17:20
== END ==
PROVIDERS: Family Provider Pediatrics; PCP Family Medicine; Referring Provider Family Medicine; Visit Provider Family Medicine
DX: Z36.2 Encounter for other antenatal screening follow-up (principal); Z3A.24 24 weeks gestation of pregnancy
CPT/HCPCS: 76816

== ENCOUNTER → 2022-04-21 14:20 | Outpatient (CLI) | payer OTHER, MEDICAID, SELFPAY ==
[2022-04-21 16:55] LABS: Add Manual Diff / Slide Review NO; Basophils Absolute Auto 0 /uL (0-100); Basophils Percent Auto 0.5 % (0-2); Eosinophils Absolute Auto 100 /uL (0-450); Eosinophils Percent Auto 0.8 % (2-4); Hematocrit 33.6 % (36-46); Hemoglobin 11.8 g/dL (12.0-16.0); Lymphocytes Absolute Auto 1400 /uL (1100-4500); Lymphocytes Percent Auto 18.9 % (25-40); Mean Corpuscular Hemoglobin 32.3 PG (26-34); Mean Corpuscular Volume 92.2 fL (80-100); Monocytes Absolute Auto 400 /uL (0-900); Neutrophils Absolute Auto 5400 /uL (1500-7000); Neutrophils Percent Auto 74.8 % (50-75); Platelet Count 224 X10^3/uL (150-400); Red Blood Cell Count 3.65 X10^6/uL (4.0-5.2); White Blood Cell Count 7.2 X10^3/uL (4.5-11.0)
[2022-04-21 17:07] LABS: GTT (PREG) 1 Hour PP 50gm Dose 105 mg/dL (76-139)
== END ==
PROVIDERS: Family Provider Pediatrics; PCP Family Medicine; Referring Provider Family Medicine; Visit Provider Family Medicine
DX: Z34.92 Encounter for supervision of normal pregnancy, unspecified, second trimester (principal); Z3A.27 27 weeks gestation of pregnancy
CPT/HCPCS: 36415; 82950; 85025

== ENCOUNTER → 2022-06-26 14:36 | Outpatient (CLI) | payer OTHER, MEDICAID, SELFPAY ==
[2022-06-27 13:54] LABS: Strep Grp B PCR NEG for Grp B Strep
== END ==
PROVIDERS: Family Provider Pediatrics; PCP Family Medicine; Visit Provider Family Medicine
DX: Z34.83 Encounter for supervision of other normal pregnancy, third trimester (principal); Z3A.36 36 weeks gestation of pregnancy
CPT/HCPCS: 87653

== ENCOUNTER 2022-07-20 11:32 | Inpatient (IN) | payer OTHER, MEDICAID, SELFPAY ==
[2022-07-20] MEDS: LACTATED RINGERS 1,000 ML 100 ML IV ×2 (13:30→21:42)
[2022-07-20 13:50] LABS: Add Manual Diff / Slide Review NO; Basophils Absolute Auto 100 /uL (0-100); Basophils Percent Auto 1.5 % (0-2); Eosinophils Absolute Auto 0 /uL (0-450); Eosinophils Percent Auto 0.4 % (2-4); Hematocrit 34.4 % (36-46); Hemoglobin 11.6 g/dL (12.0-16.0); Lymphocytes Absolute Auto 1200 /uL (1100-4500); Lymphocytes Percent Auto 14.2 % (25-40); Mean Corpuscular HGB Conc 33.9 % (30-36); Mean Corpuscular Hemoglobin 27.1 PG (26-34); Mean Corpuscular Volume 79.9 fL (80-100); Monocytes Absolute Auto 700 /uL (0-900); Monocytes Percent Auto 8.1 % (3-14); Neutrophils Absolute Auto 6300 /uL (1500-7000); Neutrophils Percent Auto 75.8 % (50-75); Platelet Count 190 X10^3/uL (150-400); Red Cell Distribution Width 14.9 % (11.6-14.8); White Blood Cell Count 8.3 X10^3/uL (4.5-11.0)
[2022-07-20] MEDS: FENT 2MCG/ML BUPIV 0.125% EPI 200 MCG/100 ML PLAST..BAG 8 MCG EPIDURAL (13:55)
[2022-07-20 14:30] VITALS: BP 115/72
[2022-07-20] MEDS: OXYTOCIN PREMIX 30 UNIT/500 ML PLAST..BAG 200 UNIT IV (16:55)
--- NOTE | 2022-07-20 17:02 | P.PCNOB_ITS ---
Labor & Delivery Delivery date: 07/20/22 Intrapartal Events: None Cervical ripening method: none Induction method: none Delivery monitor: external FHT and external uterine Route of delivery: Episiotomy description: None L&D Laceration Description: Perineal - 2nd Degree Delivery repair: chromic Quantitative Blood Loss: 450 Anesthesia Type: Epidural Complications: None Narrative: PROCEDURE: at 40w0d presented in active labor and was admitted to Labor and Delivery. The patient progressed through the 1st stage over 3 hours. SROM occured at 15:47 with clear fluid. Pain was controlled with an epidural. The patient progressed through the 2nd stage over 19 minutes and delivered a viable male with APGARs 9/9 at 16:44 via without complications. The cord was cut and clamped after it stopped pulsating. The placenta delivered with gentle cord traction, and appeared complete. The perineum and vagina were inspected with 2nd degree perineal laceration repaired with 2-O Vicryl. Needle and sponge counts were correct.? The vagina was inspected and no items were left in situ. Tina was doing well with Shade, her and Paul at bedside. PREPROCEDURE DIAGNOSIS: Intrauterine at 40w0d GBS negative RH negative POSTPROCEDURE DIAGNOSIS: Intrauterine at 40w0d, delivered Same as preprocedure [place] Baby 1: Infant gender: Male Presentation: vertex Position: Left Occiput Anterior Placenta delivery description: Spontaneous Cord Vessel Description: 3 Vessels score (1 min): 9 score (5 min): 9 weight: 8 lb 8.969 oz Plan for aftercare: Routine care
--- NOTE | 2022-07-20 17:03 | PM.OBHP.IH.1 ---
OB HPI Date/Time Date of admission: 07/20/22 Date Patient Seen: 07/20/22 History of Present Condition Chief complaint: obs MODESTO Calculator Estimated Delivery Date Method Current WG Current Estimate 07/20/22 Manual 40w 0d Final MODESTO - TAD Other Estimates 06/08/22 LMP (Uncertain) 46w 0d 07/20/22 Ultrasound #1 40w 0d Estimated Gestational Age (weeks): 40w0d : 2 Para: 1 Narrative: 22yo at 40w0d here with regular contractions. Pt reports contractions starting yesterday, increasing in frequency and intensity this morning. She had mild spotting last night, no LOF. She is feeling her baby move regularly. The pts has been uncomplicated. care: good care, initiated at week # (11) and pounds weight gain (32) Dating criteria OB: based on 1st trimester US only Ultrasounds: normal 1st trimester US and normal mid trimester US Obstetrical complications: none Medical complications OB: none Preadmission Labs Last OB Lab Results: Blood Type O Negative 07/20/22 13:30 Antibody Screen Negative 07/20/22 13:30 Hematocrit 34.4 % (36-46) L 07/20/22 13:30 Hemoglobin 11.6 g/dL (12.0-16.0) L 07/20/22 13:30 Hepatitis B Surface Antigen Negative s/c (NEGATIVE) 01/04/22 16:58 Hepatitis C Antibody Negative s/c (NEGATIVE) 01/04/22 16:58 Rubella Antibody 56.7 IU/mL (>15) 01/04/22 16:58 Varicella-Zoster IgG Antibody 157 index (Immune >165) L 01/04/22 16:58 Glucose 1 Hour 105 mg/dL (76-139) 04/21/22 15:46 Group B Streptococcus (PCR) Neg for grp b strep 06/26/22 14:36 -: Chlamydia screen: negative, Gonorrhea screen: negative and Urine: negative Genetic Screens: Quad screen: Normal External Labs -: Urine: negative Prior (ies) Past Pregnancies Del. Date GA/Weeks Labor Lgth Wt Sex Route Outcome Anesthesia Place Delv Breastfeed Preg Comp Name 04/08/21 40 10 8 lb 10 oz Female vaginal live - full term IH 1-2 months none Linda Evaluation Evaluation Baseline heart rate: 145 Variability: Moderate (11-25) monitor accelerations: Present Monitor Decelerations: Absent Contraction Frequency (minutes): 5 Status: Category l Dilation (cm): 6 Effacement (%): 90 station: -1 [facility] Medical History Anxiety Concussion Cyst of left breast (~2019) Depression History of being hospitalized Hx of migraines Loss of teeth due to extraction Skull fracture Spontaneous vaginal delivery Trauma Surgical History No history of previous surgery Family History Father Alcohol addiction Depression Anxiety PTSD (post-traumatic stress disorder) Mother Tendonitis Arthritis Grandfather Alcohol addiction Family estrangement Grandmother Arthritis Diabetes mellitus Grandfather Family estrangement Alcohol addiction Grandmother Family estrangement Alcohol addiction Brother Mental health problem ADHD PTSD (post-traumatic stress disorder) Anxiety Sister Anxiety Depression Family/Other Leukemia Cancer Family/Other Asthma Social History marital status: unmarried,living together number of children: 1 household members: significant other, children and friend(s) lives independently: Yes caregiver/support person: Yes housing: apartment pets and animals: Yes (1 cat) education level: high school occupational status: unemployed current occupational exposures/hazards: Yes special kathy needs: No travel history: recent seatbelt use: always helmet use: No (counseled on this) water heater temp set < 120 deg: Yes working smoke detector in home: Yes fire extinguisher in home: Yes carbon monox detector in home: Yes firearms in home: No do you feel safe at home: Yes Smoking Status: Never smoker Tobacco: How many years used: 4 Smokeless tobacco user: dissolvable tobacco quit status: quit date established second hand exposure: Yes (FOB and Friends they hang out with smoke : cigarettes and Vape) alcohol intake: former substance use type: does not use and marijuana during the past year weight has: other well-balanced diet: about half the time daily servings fruits/ve-4 caffeine: Yes (aware of 200mg limit) Type(s) of exercise: walking Meds Home Medications and Allergies Home Medications Medication Instructions Recorded Confirmed Type prenat.vits,tico,[id number] 1 tab PO DAILY 11/01/20 07/20/22 History breast pump #1 ea 04/11/21 07/20/22 Rx Allergies Allergy/AdvReac Type Severity Reaction Status Date / Time amoxicillin [From AUGMENTIN] Allergy Intermediate HIVES Verified 07/17/22 15:09 clavulanic acid Allergy Intermediate Hives Verified 07/17/22 15:09 [CLAVULANIC ACID] OB Exam Narrative Exam Narrative: Gen: NAD, sitting comfortably in bed, appears well CV: RRR, no murmurs Resp: clear to auscultation bilaterally Abd: soft, nontender, gravid Ext: no edema Objective Labs 07/20/22 13:30 Labs: Laboratory Results - last 24 hr 07/20/22 07/20/22 13:30 13:30 WBC 8.3 RBC 4.30 Hgb 11.6 L Hct 34.4 L MCV 79.9 L MCH 27.1 MCHC 33.9 RDW 14.9 H Plt Count 190 Neut % (Auto) 75.8 H Lymph % (Auto) 14.2 L [place] % (Auto) 8.1 Eos % (Auto) 0.4 L Baso % (Auto) 1.5 Neut # (Auto) 6300 Lymph # (Auto) 1200 [place] # (Auto) 700 Eos # (Auto) 0 Baso # (Auto) 100 Blood Type O Negative Antibody Screen Negative Assessment and Plan Assessment and Plan Assessment and Plan narrative: 22yo at 40w0d here in active labor. uncomplicated. GBS negative, Rh negative. - Expectant management, anticipate - FHT reassuring - GBS negative, no prophylaxis indicated - Epidural for pain control when desired
[2022-07-20] MEDS: ACETAMINOPHEN 325 MG TABLET 650 MG PO (17:41)
[2022-07-20] MEDS: IBUPROFEN 600 MG TABLET PO (17:42)
[2022-07-20] MEDS: fentaNYL 100 MCG/2 ML INJ IV (20:50)
[2022-07-20] MEDS: miSOPROStoL 200 MCG TABLET 1000 MCG PR (21:03)
[2022-07-20] MEDS: TRANEXAMIC ACID 1,000 MG in SODIUM CHLORIDE 0.9% 100 ML 200 MG IV (21:05)
[2022-07-20] MEDS: METHYLERGONOVINE 0.2 MG/ML VIAL IM (21:14)
[2022-07-20 21:42] LABS: Hematocrit 30.8 % (36-46); Hemoglobin 10.3 g/dL (12.0-16.0)
--- NOTE | 2022-07-20 21:42 | PM.EVENT ---
Event Note Date Patient Seen: 07/20/22 Time Patient Seen: 21:42 Event Note (Rapid Response, Code, or fall): Contacted by nursing due to patient with heavier than desired bleeding. She had risen to use the restroom for the first time, and passed multiple large clots in the toilet, and continued to bleed more heavily. The pt was given 100mcg of Fentanyl, and then bimanual exam was completed with removal of a large clot. 30mU of Pitocin was given, in addition to 1000mcg of Cytotec. She continued to have a continuous trickle of bleeding. Bimanual exam was again completed, with removal of a few small placental-appearing remnants. The uterus was then swept with multiple sponges, and completely examined without any additional palpable irregularities present. The pt then received TXA and Methergine. Bakri balloon was considered but not placed as her bleeding had improved. Her bleeding was noted to be minimal. Total QBL 713, in addition to blood lost in the toilet/bathroom floor. The pt remained asymptomatic, and vital signs stable throughout. H/H sent with minimal drop, although likely not equilibrated. Will give 2g Ancef due to significant intrauterine manual manipulation. Will continue to monitor bleeding closely.
[2022-07-20] MEDS: CEFAZOLIN 2 GM/100 ML PREMIX 100 ML IV (22:11)
[2022-07-21] MEDS: ACETAMINOPHEN 325 MG TABLET 650 MG PO ×4 (00:55→22:03)
[2022-07-21] MEDS: IBUPROFEN 600 MG TABLET PO ×4 (00:55→22:03)
[2022-07-21] MEDS: METHYLERGONOVINE 0.2 MG TABLET PO (03:03)
[2022-07-21 06:37] LABS: Hematocrit 30.7 % (36-46); Hemoglobin 10.3 g/dL (12.0-16.0)
--- NOTE | 2022-07-21 16:13 | P.DS_ITS ---
Discharge Providers Provider Date of admission: 07/20/22 11:32 Discharge Date: 07/21/22 Primary care physician: Amy Holloway MD Consults: 07/20/22 13:40 Consult to Anesthesiology Urgent Comment: Consulting Provider: Anesthesiologist Reason for consultation: Epidural 07/21/22 17:00 Consult to Manager Clinical Services Routine Comment: Discharge provider: Amy Holloway MD Summary Hospital Course Date Patient Seen: 07/21/22 Diagnoses: Intrauterine at 40w0d GBS negative RH negative hemorrhage due to uterine atony Acute blood loss anemia Hospital Course: The pt presented in active labor. She had an epidural for pain control. She progressed to complete and had an of a viable baby boy without complications. A 2nd degree perineal laceration was repaired. She then had a delayed hemorrhage, requiring manual evacuation of clot, pitocin, cytotec, TXA, and methergine to control. The pts bleeding since then has been appropriate. She will be continued on an iron supplement at discharge. , there were no additional complications. At the time of discharge she was voiding, ambulating, and passing flatus without difficulty. Her lochia was decreasing appropriately. Her pain was well controlled. She will f/u in 6 weeks for check. She would like OCPs for contraception. Peripartum Data Infant Delivery Method: Natural Vaginal Laceration Description: Perineal - 2nd Degree Episiotomy description: None complications: uterine atony [place] 1: Gender: Male Disposition of : home Discharge Diagnosis (1) hemorrhage: Status: Acute Status at Discharge Cognitive/behavioral status at discharge: oriented Functional status at discharge: independent ambulation Overall status at discharge: patient is progressing back to baseline Time Spent with Patient Time attestation: Total time spent providing and/or coordinating discharge services: Objective Labs 07/21/22 06:23 Labs: Laboratory Results - last 24 hr 07/20/22 07/21/22 21:25 06:23 Hgb 10.3 L 10.3 L Hct 30.8 L 30.7 L Exam Narrative Exam Narrative: Gen: NAD, sitting comfortably in bed, appears well CV: RRR, no murmurs Resp: clear to auscultation bilaterally Abd: soft, appropriately tender, fundus firm and below the umbilicus, nondistended Ext: no edema Discharge Plan Discharge Plan Patient Disposition: Home Discharge orders & Medications Prescriptions: New acetaminophen 325 mg Tablet 650 mg PO Q6HR PRN (Reason: Pain, Mild (1-3)) Qty: 30 0RF ferrous sulfate 325 mg (65 mg iron) Tablet 325 mg PO DAILY Qty: 30 0RF docusate sodium 100 mg Capsule 100 mg PO DAILY Qty: 30 0RF ibuprofen 600 mg Tablet 600 mg PO Q6HR PRN (Reason: Pain, Mild (1-3)) Qty: 30 0RF Continued (DME) breast pump Device See Rx Instructions .ROUTE .MEDSUPPLY Qty: 1 0RF Rx Instructions: As directed prenat.vits,tico,qii-llyh-[id number] Tablet 1 tab PO DAILY Follow up/Referrals: Amy Holloway MD [Primary Care Provider] - 6 Weeks Diet/Activity/Treatments Diet: Diet as Tolerated and Regular Skin/Wound/Dressing Care Report to your healthcare provider any signs of infection, such as:: chills, fever, increased pain and unusual drainage Visit Report/Discharge Packet Instructions: DI for Labor and Delivery, Vaginal Stand Alone Forms: Patient Portal/API, Stroke Signs & Symptoms Discharge Data Primary Care Provider: Amy Holloway
[2022-07-22] MEDS: IBUPROFEN 600 MG TABLET PO ×2 (05:22→11:06)
[2022-07-22] MEDS: ACETAMINOPHEN 325 MG TABLET 650 MG PO ×2 (05:22→11:06)
--- NOTE | 2022-07-22 09:13 | PM.OBDS.1 ---
Discharge Providers Provider Date of admission: 07/20/22 11:32 Discharge Date: 07/22/22 Primary care physician: Amy Holloway MD Consults: 07/20/22 13:40 Consult to Anesthesiology Urgent Comment: Consulting Provider: Anesthesiologist Reason for consultation: Epidural 07/21/22 17:00 Consult to Cellophane Bag Machine Operator Routine Comment: Discharge provider: Omaira Garcia DO Summary Hospital Course Date Patient Seen: 07/22/22 Time Patient Seen: 09:00 Diagnoses: Spontaneous vaginal delivery 40 weeks of Delayed hemorrhage Hospital Course: 22-year-old after uncomplicated spontaneous vaginal delivery at 40 weeks' gestation with subsequent complication of delayed hemorrhage. Please see Dr. Holloway's discharge summary from 07/21/22. Patient stayed an additional night in the hospital while her infant received phototherapy. Day of discharge she denied complaints. She was ambulating, voiding, passing flatus. Vaginal bleeding was similar to a menstrual cycle and decreasing. Pain controlled with ibuprofen and Tylenol. Advised to call for fevers, severe pain or bleeding through more than a pad an hour. Follow-up as scheduled with Dr. Holloway for 6 week visit or sooner if needed. Peripartum Data Delivery Method: Natural Vaginal [place] 1: Gender: Male Disposition of : home Discharge Diagnosis (1) Spontaneous vaginal delivery: Status: Acute (2) hemorrhage: Status: Acute Status at Discharge Cognitive/behavioral status at discharge: at baseline, oriented Functional status at discharge: independent ambulation Overall status at discharge: patient is back to baseline Time Spent with Patient Time attestation: Total time spent providing and/or coordinating discharge services: Time spent: Less than 30 minutes Objective Labs 07/21/22 06:23 Exam Vital Signs (past 8 hours): Temperature 98.2? blood pressure 100/67 heart rate 81 respirations 16 Narrative Exam Narrative: General: Awake and alert, no acute distress. HEENT: NCAT, EOMI, moist oral mucosa CV: Regular rate and rhythm, no murmurs, rubs or gallops Lungs: CTAB, no wheezes, rales, or rhonchi Abdomen: Soft, nontender; bowel tones active; uterus firm 2 cm below umbilicus Extremities: Warm, no edema Discharge Plan Discharge Plan Patient Disposition: Home Discharge orders & Medications Prescriptions: New acetaminophen 325 mg Tablet 650 mg PO Q6HR PRN (Reason: Pain, Mild (1-3)) Qty: 30 0RF ferrous sulfate 325 mg (65 mg iron) Tablet 325 mg PO DAILY Qty: 30 0RF docusate sodium 100 mg Capsule 100 mg PO DAILY Qty: 30 0RF ibuprofen 600 mg Tablet 600 mg PO Q6HR PRN (Reason: Pain, Mild (1-3)) Qty: 30 0RF Continued (DME) breast pump Device See Rx Instructions .ROUTE .MEDSUPPLY Qty: 1 0RF Rx Instructions: As directed prenat.vits,tico,[id number] Tablet 1 tab PO DAILY Follow up/Referrals: Amy Holloway MD [Primary Care Provider] - 09/05/22 11:45 am Diet/Activity/Treatments Diet: Diet as Tolerated and Regular Skin/Wound/Dressing Care Report to your healthcare provider any signs of infection, such as:: chills, fever, increased pain and unusual drainage Visit Report/Discharge Packet Instructions: DI for Labor and Delivery, Vaginal Stand Alone Forms: Patient Portal/API, Stroke Signs & Symptoms Discharge Data Primary Care Provider: Amy Holloway
[2022-07-22] MEDS: PRENATAL VIT,CALC/IRON/FOLIC 1 TABLET 1 TAB PO (09:52)
[2022-07-22] MEDS: DOCUSATE 100 MG CAPSULE PO (09:53)
[2022-07-22] MEDS: FERROUS SULFATE 325 MG TABLET PO (09:53)
== END 2022-07-22 11:30 | disposition home or self-care (01) | DRG 560 ==
PROVIDERS: Admitting Provider Family Medicine; Family Provider Pediatrics; PCP Family Medicine; Referring Provider Family Medicine; Visit Provider Family Medicine
DX: O90.81 Anemia of the puerperium (principal); D62 Acute posthemorrhagic anemia; Z3A.40 40 weeks gestation of pregnancy; Z37.0 Single live birth; O70.1 Second degree perineal laceration during delivery
CPT/HCPCS: 36415; 59050; 59409; 85014; 85018; 85025; 86850; 86900; 86901; G0379; J0690; J2210; J2590; J3010; S0191